=== PATIENT | male | born 1945 | race Caucasian/White ===

== ENCOUNTER 2024-01-17 18:50 | Observation (INO) ==
[2024-01-17 20:09] LABS: Appearance Urine Turbid (Clear); Bilirubin Urine Negative (Negative); Blood Urine 3+ (Negative); Color Urine Red; Glucose Urine UA Negative (Negative); Ketones Urine Trace (Negative); Leukocyte Esterase Urine Trace (Negative); Nitrite Urine Negative (Negative); Protein Urine 3+ (Negative); Urobilinogen Urine Negative (Negative)
[2024-01-17 20:13] LABS: RBC Urine >20 /hpf (0-2)
[2024-01-17 20:14] LABS: Bacteria Urine 1+ (None Seen)
--- NOTE | 2024-01-17 21:31 | Emergency Department Note ---
Impression & Plan Hyponatremia, Urinary retention ED Provider Note CHIEF COMPLAINT: Hematuria, trouble urinating HISTORY OF PRESENTING ILLNESS: This 78-year-old male patient presents to the emergency department for evaluation of trouble urinating. He states that he has been only trickling urine for the past 3-4 days, but was trying to hold off. The patient states that he has not urinated since 1600 today and it is now 2130. The patient has a history of enlarged prostate and frequently requires Anylor catheters to be placed due to urinary retention. He continues to follow-up with urology. He was last seen in the emergency department on 12/01/2023 with similar symptoms and a Naylor catheter was placed. The patient is on Flomax to help with his symptoms. He is not on antibiotics right now. He follows up with Dr. Greene and they are discussing a possible repeat surgery to help with the prostate enlargement. He does not have a follow up with Dr. Greene for another month. The patient states that he did not start to get blood in his urine until after they tried to do the catheter. Did not have any symptoms prior to the catheter, but now has some burning at the end of his penis. REVIEW OF SYSTEMS: See HPI for pertinent positives and pertinent negatives. ALLERGIES: Latex MEDICATIONS: See below PAST MEDICAL HISTORY: See below PHYSICAL EXAM: VITALS: Vitals are noted on the nurse's note and reviewed by myself. GENERAL: Non toxic, no acute distress, non-diaphoretic. SKIN: Capillary refill <2 sec. EYES: PERRLA. EOMI. Conjunctivae without injection, sclerae without icterus. NOSE: Patent without discharge. MOUTH: Mucous membranes moist. Uvula midline. Airway patent. NECK: Supple without nuchal rigidity. HEART: Regular rate and rhythm without murmurs gallops or rubs. LUNGS: Clear to auscultation bilaterally without wheezes, rales or rhonchi. No retractions or accessory muscle use. ABDOMEN: Positive bowel sounds x 4. Normal tympanic percussion. Soft, nontender. No masses or organomegaly. Emery sign negative. No guarding or rebound tenderness. No focal RLQ or LLQ tenderness. : Permission to perform the exam. Radio News Writer present for the exam. Testicles are descended bilaterally and are nontender to palpation with no obvious masses noted. No penile lesion or discharge. NEURO: Patient was alert and oriented. No focal neurological deficits. DIFFERENTIAL DIAGNOSIS: Differential diagnosis includes urinary retention, prostatitis, prostate enlargement, UTI, kidney stone, acute kidney injury, electrolyte abnormality, or others. ED COURSE AND MEDICAL DECISION MAKING: MEDICATIONS GIVEN: Normal saline solution at 125 mL/h up to 500 ml. Rocephin 2 g IV. INTERPRETATION OF LABS: I interpreted the labs with full lab results as below in the lab section of this note. White blood cell count normal at 5.65. Hemoglobin low at 12.6. Platelet count normal at 286. Sodium significantly low at 119. Chloride 88. BMP otherwise normal. Urinalysis with 3+ protein, trace ketones, 3+ blood, trace leukocyte Estrace, greater than 20 red blood cells, 6- 10 white blood cells, 3-5 epithelial cells, and 1+ bacteria. Urine culture is pending. EXTERNAL RECORDS REVIEWED: I reviewed the patient's past urology visit notes and previous admissions for similar complaints. CONSULTATIONS: Mahesh Mccarty PA-C of urology. The on-call hospitalist. MDM SUMMARY: The patient was seen during a time of extreme volume and extreme acuity. Nursing triage protocols were initiated and conducted by protocol in the triage area. The patient was examined by myself once they were taken back to an exam room. Bladder scan by nursing staff revealed 209 mL of urine. Nursing staff attempted multiple times to place a Naylor catheter, but were unsuccessful. The patient did have 50 mL of urine returned with attempt at Naylor catheter placement and there was blood in the urine. Repeat bladder scan showed 250 ml. I spoke with Mahesh Mccarty PA-C of urology who evaluated the patient. He was able to place an 18 [place] Coud Naylor catheter and had 250 mL of output. He irrigated the Naylor catheter with repeat bladder scan showing no residual urine or fluid. Urinalysis was concerning for possible UTI with urine culture pending. Due to the length of the patient's symptoms, an IV lock was placed and labs were drawn. Hemoglobin is low, but stable. Sodium was significantly low at 119 and chloride 88. BMP otherwise normal. The patient will require admission for further management of the hyponatremia. He was given Rocephin 2 g IV to cover for the possible UTI. He was hydrated with normal saline solution at 125 mL/h up to 500 mL. The patient was independently evaluated by Dr. Connelly, who agrees with my assessment and treatment plan. I spoke with the on-call hospitalist who agreed to admit the patient for further evaluation and treatment. Please refer to their dictation for further details. The patient's care was transferred in stable condition. DIAGNOSIS: Hyponatremia Urinary retention Possible UTI Past Med/Surg History Medical History Urinary retention Asthma daily inh, and rescue inh prn Hyperlipidemia BPH (benign prostatic hyperplasia) Anxiety Surgical History Hx of cataract surgery rt and left Family History Other Family history unknown Social History Smoking Status: Never smoker Tobacco Type: Cigarettes and Smokeless Tobacco (Dip or Chew) Second Hand Exposure: No; Do You Dip or Chew Tobacco: No (quit 15 years ago; advised); Hx Alcohol Use: Yes Alcohol type: beer Alcohol Intake Frequency: 4 or More x per/Week Hx Substance Use: No Preferred Language: Telugu Communication Ability: Effective Visual Impairment: Limited Hearing Ability: Use of Hearing Aid Automatic 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 Seatbelt Use: never Sunscreen Use: Yes Assistive Devices: Glasses and Hearing Aid - Bilateral Allergies Allergies Allergy/AdvReac Type Severity Reaction Status Date / Time latex Allergy Intermediate Mouth Verified 01/17/24 23:59 Sores (from dentist gloves) Home Meds Home Medications Medication Instructions Recorded Confirmed buspirone 5 mg tablet 5 mg PO QAM 08/30/23 01/18/24 cholecalciferol (vitamin D3) 125 125 mcg PO QAM 08/30/23 01/18/24 mcg (5,000 unit) capsule cyanocobalamin (vitamin B-12) 1,000 mcg PO QAM 08/30/23 01/18/24 1,000 mcg tablet (Vitamin B-12) finasteride 5 mg tablet 5 mg PO QAM 08/30/23 01/18/24 simvastatin 40 mg tablet 40 mg PO QAM 08/30/23 01/18/24 albuterol sulfate 90 mcg/actuation 1 puff inhalation QID PRN 01/18/24 01/18/24 aerosol inhaler Shortness Of Breath Or Wheezing Previous Rx's Medication Instructions Recorded albuterol sulfate 2.5 mg/0.5 mL 5 mg inhalation Q6H PRN shortness 03/18/23 solution for nebulization of breath or wheezing #30 ea oxybutynin chloride 5 mg tablet 5 mg PO Q8H PRN bladder spasms #12 09/05/23 tabs phenazopyridine 200 mg tablet 200 mg PO Q8H PRN pain #10 tabs 09/05/23 (Pyridium) tamsulosin 0.4 mg capsule (Flomax) 0.4 mg PO DAILY #30 caps 11/29/23 Results & Data (ED) Vital Signs Vital Signs - 24 hr 01/17/24 18:58 Temperature 36.8 C Temperature Source Temporal Artery Scan Pulse Rate 107 H Respiratory Rate 18 Respiratory Effort / Characteristics Non-Labored Spontaneous Respiratory Depth Normal Respiratory Pattern Regular Blood Pressure 103/54 L Blood Pressure Mean 70 Blood Pressure Position Sitting Pulse Oximetry 96 Oxygen Delivery Method Room Air Sepsis Recent Fever Within 48 Hours No Sepsis New/Unexplained Change in Mental Status N/A Sepsis Action Taken by Nursing No Action Required Laboratory Data 01/17/24 23:03 01/17/24 23:03 Lab Results 01/17/24 01/17/24 01/17/24 Range/Units 19:45 23:03 23:04 WBC 5.65 (4.8-10.8) K/ul RBC 3.71 L (4.70-6.10) M/uL Hgb 12.6 L (14.0-18.0) g/dl Hct 35.0 L (42.0-52.0) % MCV 94.3 (80.0-100.0) fL MCH 34.0 (25.0-34.0) pg MCHC 36.0 (32.0-36.0) g/dL RDW Std Deviation 40.3 (36.4-46.3) fL RDW Coeff of Polina 11.6 (11.5-14.5) % Plt Count 286 (130-400) K/uL MPV 8.7 L (9.4-12.4) fL Immature Gran % (Auto) 0.5 % Neut % (Auto) 59.2 % Lymph % (Auto) 22.8 % [place] % (Auto) 15.8 % Eos % (Auto) 1.2 % Baso % (Auto) 0.5 % Neut # (Auto) 3.34 (1.40-6.50) K/uL Lymph # (Auto) 1.29 (1.20-3.40) K/uL [place] # (Auto) 0.89 H (0.11-0.59) K/uL Eos # (Auto) 0.07 (0.00-0.50) K/uL Baso # (Auto) 0.03 (0.00-0.20) K/uL Immature Gran # (Auto) 0.03 (0.01-0.20) K/uL Sodium 119 L* (136-145) mmol/L Potassium 4.3 (3.5-5.1) mmol/L Chloride 88 L (98-107) mmol/L Carbon Dioxide 24 (21-32) mmol/L Anion Gap 7 (3-11) BUN 14 (6-23) mg/dl Creatinine 1.04 (0.6-1.4) mg/dl Est Cr Clr Drug Dosing 57.2 ml/min Est GFR ( Amer) 80.5 ml/min Est GFR (Non-Af Amer) 69.4 ml/min BUN/Creatinine Ratio 13.5 (10-20) Glucose 95 (70-99(Fasting)) mg/dl Osmolality 252 L (280-300) mOsm/kg Calcium 9.3 (8.6-10.3) mg/dl Phosphorus 2.8 (2.5-4.9) mg/dl Magnesium 1.9 (1.7-2.4) mg/dl TSH 2.067 (0.300-4.500) uIu/ml Urine Color Red Urine Appearance Turbid A (Clear) Urine pH 6.0 (4.5-7.5) Ur Specific [place] 1.020 (1.000-1.030) Urine Protein 3+ H (Negative) Urine Glucose (UA) Negative (Negative) Urine Ketones Trace H (Negative) Urine Blood 3+ H (Negative) Urine Nitrite Negative (Negative) Urine Bilirubin Negative (Negative) Urine Urobilinogen Negative (Negative) Ur Leukocyte Esterase Trace H (Negative) Urine RBC >20 H (0-2) /hpf Urine WBC 6-10 H (0-5) /hpf Ur Epithelial Cells 3-5 H (0-2) /hpf Urine Bacteria 1+ H (None Seen) Administered Medications Albuterol (Albuterol Hfa 8 Gm Inhaler) 1 puffs INH QID PRN PRN Reason: Shortness Of Breath Or Wheezin Stop: 02/17/24 01:19 Last Admin: 01/18/24 02:17 Dose: 1 puffs Documented By: DONYA Discontinued Medications Sodium Chloride (Nss) 500 mls @ 125 mls/hr IV .Q4H TIN Stop: 02/16/24 23:44 Last Infusion: 01/18/24 04:36 Dose: Infused Documented By: Admin: 01/18/24 00:22 Dose: 125 mls/hr Documented By: ANDREI Ceftriaxone Sodium (Rocephin) 2,000 mg in 50 mls @ 100 mls/hr IV NOW STA Stop: 01/18/24 00:22 Last Infusion: 01/18/24 03:41 Dose: Infused Documented By: Admin: 01/18/24 00:23 Dose: 100 mls/hr Documented By: ANDREI Lidocaine HCl (Lidocaine 2% Jelly 5 Ml Tube) Confirm Administered Dose 5 ml EXT .STK-MED ONE Stop: 01/17/24 22:22 Last Admin: 01/17/24 22:59 Dose: Not Given Documented By: ANDREI Lidocaine HCl (Lidocaine 2% Jelly 5 Ml Tube) 5 ml EXT NOW ONE Stop: 01/17/24 22:58 Last Admin: 01/17/24 22:59 Dose: 5 ml Documented By: ANDREI Discharge Plan Visit Data Chief Complaint: Hematuria Stated Complaint: TROUBLE URINATING ED Provider: Yancy Connelly ED Midlevel Provider: Iona Boucher Discharge Problem: Hyponatremia, Urinary retention Patient Disposition: Admitted As Inpatient Condition: Good Discharge Instructions Interventions: ED Discharge Assessment Last Done: 01/18/24 01:20
[2024-01-17] MEDS: LIDOCAINE 2% JELLY 5 ML TUBE EXT ONE ×2 (22:59)
[2024-01-17 23:16] LABS: Basophils # (auto) 0.03 K/uL (0.00-0.20); Basophils % (auto) 0.5 %; Eosinophils # (auto) 0.07 K/uL (0.00-0.50); Eosinophils % (auto) 1.2 %; Hemoglobin 12.6 g/dl (14.0-18.0); Immature Granulocytes # (auto) 0.03 K/uL (0.01-0.20); Immature Granulocytes % (auto) 0.5 %; Lymphocytes # (auto) 1.29 K/uL (1.20-3.40); Lymphocytes % (auto) 22.8 %; Mean Corpuscular Volume 94.3 fL (80.0-100.0); Mean Platelet Volume 8.7 fL (9.4-12.4); Monocytes # (auto) 0.89 K/uL (0.11-0.59); Monocytes % (auto) 15.8 %; Neutrophils # (auto) 3.34 K/uL (1.40-6.50); Neutrophils % (auto) 59.2 %; Platelet Count 286 K/uL (130-400); RDW Coefficient of Variation 11.6 % (11.5-14.5); RDW Standard Deviation 40.3 fL (36.4-46.3); Red Blood Count 3.71 M/uL (4.70-6.10); White Blood Count 5.65 K/ul (4.8-10.8)
--- NOTE | 2024-01-17 23:43 | Urology Consultation ---
Date of Consultation January 17, 2024 Assessment & Plan (1) Urinary retention: I evaluated the patient in room D6. As previously noted nursing staff attempted to place Naylor catheter without success. They did BladderScan the patient for approximately 250 cc of urine Procedure: With the patient's permission and under sterile technique I successfully and easily placed an 18 [place] coud catheter. After obtaining the patient's consent I did prep and drape his penis in usual sterile fashion and used a Uro- Jet to anesthetized and lubricate the patient's urethra. I then easily placed a 18 [place] coud catheter. I immediately got a return of some blood-tinged urine. There were no visible clots in the catheter. Naylor catheter balloon was inflated without difficulty. I placed the catheter to gravity drainage and allow the bladder to completely empty. I then measured the amount of urine that was retrieved and was approximately 250 cc, consistent with what was noted on bladder scan. Following this, I flushed and irrigated the patient's Naylor catheter with no visible clots obtained. The catheter flushed and irrigated easily. A bladder scan was then performed which revealed no residual urine. Following the above-noted procedure, labs were drawn to ensure the patient did not have any significant electrolyte abnormalities or evidence of kidney injury. His chemistry profile came back showing he had marked hyponatremia. I did discuss with the treating clinician the emergency department and she noted that she was going to have the patient admitted on the hospitalist service secondary to this abnormality. Please refer to the primary admitting services recommendations regarding further treatment of his hyponatremia. Urology will continue to follow along with additional recommendations regarding the patient's urinary retention. History of Present Illness Reason for Consultation: Urinary retention History of Present Illness This is a 78-year-old male who follows with [facility] urology. He was most recently followed with Dr. Greene. On 09/05/2023 the patient underwent a Rezum procedure by Dr. Greene. The patient notes that following this procedure he had improvement of urinary symptomatology that he was experiencing before this procedure. The patient does note that recently he has been having some increasing difficulty with a weak urine stream. He notes that his urine stream has been much weaker and he actually notes that it is not a straight stream but actually splits when he urinates. He has not noted any hematuria as an outpatient. The patient notes that due to the symptomatology he is considering undergoing further surgical intervention with Dr. Greene. Over the past 3 days the patient notes that he has been having an even greater deal of difficulty urinating as the urine is merely dribbling from his urethra. Again he denies any blood in his urine. He denies any fevers, shakes, or chills. He denies any back or flank pain. The patient notes that throughout the course of the day he has had some suprapubic pressure and feeling as though he cannot empty his bladder prompting a visit to the emergency department. Since arrival to the hospital the patient has had some labs drawn. CBC revealed white blood cell count and platelet count are normal. His hemoglobin and hematocrit are 12.6 and 35.0. A chemistry profile showed his sodium was low at 119. Potassium, BUN, and creatinine were normal.A urinalysis showed turbid urine which was negative for nitrites but had trace leukocyte Estrace. He had 6-10 white blood cells per high-power field and 1+ bacteria. In the emergency department the patient underwent a bladder scan which revealed approximately 250 cc of urine. The patient did have multiple attempts at placing a Naylor catheter by nursing staff which were unsuccessful. Please see the assessment and plan for my procedural intervention regarding this patient. At the time of my interview the patient is resting comfortably in bed he is in no distress. Allergies Allergy/AdvReac Type Severity Reaction Status Date / Time latex Allergy Intermediate Mouth Verified 01/17/24 23:59 Sores (from dentist gloves) Home Medications Medication Instructions Recorded Confirmed Type albuterol sulfate 2.5 mg/0.5 mL 5 mg inhalation Q6H PRN shortness 03/18/23 01/18/24 Rx solution for nebulization of breath or wheezing #30 ea buspirone 5 mg tablet 5 mg PO QAM 08/30/23 01/18/24 History cholecalciferol (vitamin D3) 125 125 mcg PO QAM 08/30/23 01/18/24 History mcg (5,000 unit) capsule cyanocobalamin (vitamin B-12) 1,000 mcg PO QAM 08/30/23 01/18/24 History 1,000 mcg tablet (Vitamin B-12) finasteride 5 mg tablet 5 mg PO QAM 08/30/23 01/18/24 History simvastatin 40 mg tablet 40 mg PO QAM 08/30/23 01/18/24 History oxybutynin chloride 5 mg tablet 5 mg PO Q8H PRN bladder spasms #12 09/05/23 01/18/24 Rx tabs phenazopyridine 200 mg tablet 200 mg PO Q8H PRN pain #10 tabs 09/05/23 01/18/24 Rx (Pyridium) tamsulosin 0.4 mg capsule (Flomax) 0.4 mg PO DAILY #30 caps 11/29/23 01/18/24 Rx albuterol sulfate 90 mcg/actuation 1 puff inhalation QID PRN 01/18/24 01/18/24 History aerosol inhaler Shortness Of Breath Or Wheezing Patient History Medical History (Updated 01/17/24 @ 23:39 by Bradley Mccarty PA-C) Urinary retention Asthma daily inh, and rescue inh prn Hyperlipidemia BPH (benign prostatic hyperplasia) Anxiety Surgical History Hx of cataract surgery rt and left Family History Other Family history unknown Social History Smoking Status: Never smoker Tobacco Type: Cigarettes and Smokeless Tobacco (Dip or Chew) Second Hand Exposure: No; Do You Dip or Chew Tobacco: No (quit 15 years ago; advised); Hx Alcohol Use: Yes Alcohol type: beer Alcohol Intake Frequency: 4 or More x per/Week Hx Substance Use: No Preferred Language: Guinean Communication Ability: Effective Visual Impairment: Limited Hearing Ability: Use of Hearing Aid Yoke Presser Required: No Beliefs That Will Affect Care: None marital status: / Current Living Situation: Alone current occupational status: retired How many Children do You have: 2 Feels Safe at Home: Yes Childhood Exposure to Second-Hand Smoke: Yes Diet: regular caffeine: No during the past year weight has: remained stable Dental Care, Regularly: No Physical Activity Frequency: Daily Physical Activity Frequency Comment: Cuts wood and does yardwork. Seatbelt Use: never Sunscreen Use: Yes Assistive Devices: Glasses and Hearing Aid - Bilateral Review of Systems Constitutional: no fever and no chills Ear, Nose, Mouth, Throat: no hearing loss Respiratory: no cough and no dyspnea Cardiovascular: no chest pain Gastrointestinal: + abdominal pain (Suprapubic discomfort) Genitourinary: + as per Subjective / HPI Musculoskeletal: no back pain Integumentary: no rash Neurologic: no localized weakness Physical Exam Constitutional: WD/WN, vitals as above Eyes: no conjunctival abnormality ENMT: Ears: no hearing impairment Mouth: no oropharynx abnormality Neck: trachea midline Respiratory: no labored breathing Cardiovascular: Rate/Rhythm: regular rate and regular rhythm Gastrointestinal (Abdomen): Abdomen is soft and nondistended. There is nonrigid. There is no rebound tenderness or guarding. The patient did have some suprapubic discomfort with palpation Musculoskeletal: No calf tenderness Skin: no rashes Neurologic: moves all extremities Psychiatric: A+Ox3, euthymic affect Genitourinary: no CVA tenderness Results & Data Vital Signs (Past 12 Hours) Vital Signs Temp Pulse Resp BP Pulse Ox O2 Del Method 01/17/24 18:58 36.8 C 107 H 18 103/54 L 96 Room Air PG Care Time/CCT Total # of Minutes Spent Total Time Spent with Patient: Total time spent is greater than 50% in coordination of care (as documented) at patient's floor/unit and/or counseling patient: Coding Level of Care Code 39013 INT INP/OBS CARE 3/75MIN Diagnoses Urinary retention R33.9
[2024-01-17 23:45] LABS: BUN Creatinine Ratio 13.5 (10-20); Calcium 9.3 mg/dl (8.6-10.3); Creatinine Clr Calc Pharmacy 57.2 ml/min; Est GFR (African American) 80.5 ml/min; Est GFR (Non-African American) 69.4 ml/min; Potassium 4.3 mmol/L (3.5-5.1)
[2024-01-18] MEDS: SODIUM CHLORIDE 0.9% 500 ML IV SCH (00:22)
[2024-01-18] MEDS: cefTRIAXone SODIUM 2,000 MG/50 ML BAG IV STA (00:23)
--- NOTE | 2024-01-18 00:38 | History & Physical Report ---
Date of Service January 18, 2024 Assessment & Plan (1) Hyponatremia: Plan: Patient with acute on chronic hyponatremia. Sodium = 119. Last checked on 08/17/2023 and was low at 124. Asymptomatic. Patient reports drinking 3-4 beers per day, reports a good appetite with adequate oral intake. Admit to medical telemetry Check urine and serum osmolality Check urine sodium Repeat chemistry in the morning (2) Urinary retention: Plan: Status postplacement of Naylor catheter in the ER with return of 250 mL of bloody urine. Hemoglobin acceptable at 12.6. Renal function and electrolytes are in tact Maintain Naylor catheter Urology consultation appreciated Monitor renal function and CBC Was given a dose of ceftriaxone in the ER for possible UTI. Will await urine culture and hold further antibiotics for now. (3) BPH (benign prostatic hyperplasia): Plan: Chronic. Patient follows with urology. Naylor now in place Continue Flomax Continue finasteride Continue oxybutynin as needed for bladder spasms Continue Pyridium as needed for pain (4) Hyperlipidemia: Plan: Chronic. Stable. Continue simvastatin (5) Anxiety: Plan: Chronic. Continue buspirone History of Present Illness Chief Complaint: Urinary retention Primary Care Provider: Stephan Camacho DO Carl Henderson is a pleasant 78-year-old male with history of BPH with urinary retention requiring occasional Naylor placement, patient follows with urology. He reports difficulty passing urine for the last 2 to 3 days. Reports no steady stream, only dribbling. Small amount. Has had some abdominal fullness. Denies abdominal pain, nausea, vomiting. Bladder scan performed in the ER which revealed 250 mL of urine. Difficulty placing Naylor, urology was consulted and coud catheter was successfully placed by urology team. 250 cc of bloody urine returned, no retention noted. Labs drawn to assess for anemia and renal dysfunction. Found to have hyponatremia with sodium = 119 Patient denies headache, dizziness, imbalance, confusion or seizure ER course: Ceftriaxone Allergies Allergy/AdvReac Type Severity Reaction Status Date / Time latex Allergy Intermediate Mouth Verified 01/17/24 23:59 Sores (from dentist gloves) Home Medications Medication Instructions Recorded Confirmed Type albuterol sulfate 2.5 mg/0.5 mL 5 mg inhalation Q6H PRN shortness 06/23/23 04/24/24 Rx solution for nebulization of breath or wheezing #30 ea buspirone 5 mg tablet 5 mg PO QAM 08/30/23 01/18/24 History cholecalciferol (vitamin D3) 125 125 mcg PO QAM 08/30/23 01/18/24 History mcg (5,000 unit) capsule cyanocobalamin (vitamin B-12) 1,000 mcg PO QAM 08/30/23 01/18/24 History 1,000 mcg tablet (Vitamin B-12) finasteride 5 mg tablet 5 mg PO QAM 08/30/23 01/18/24 History simvastatin 40 mg tablet 40 mg PO QAM 08/30/23 01/18/24 History oxybutynin chloride 5 mg tablet 5 mg PO Q8H PRN bladder spasms #12 09/05/23 01/18/24 Rx tabs phenazopyridine 200 mg tablet 200 mg PO Q8H PRN pain #10 tabs 09/05/23 01/18/24 Rx (Pyridium) tamsulosin 0.4 mg capsule (Flomax) 0.4 mg PO DAILY #30 caps 11/29/23 01/18/24 Rx albuterol sulfate 90 mcg/actuation 1 puff inhalation QID PRN 01/18/24 01/18/24 History aerosol inhaler Shortness Of Breath Or Wheezing Past Med/Surg History Medical History Urinary retention Asthma daily inh, and rescue inh prn Hyperlipidemia BPH (benign prostatic hyperplasia) Anxiety Surgical History Hx of cataract surgery rt and left Family History Other Family history unknown Social History Smoking Status: Never smoker Tobacco Type: Cigarettes and Smokeless Tobacco (Dip or Chew) Second Hand Exposure: No; Do You Dip or Chew Tobacco: No (quit 15 years ago; advised); Hx Alcohol Use: Yes Alcohol type: beer Alcohol Intake Frequency: 4 or More x per/Week Hx Substance Use: No Preferred Language: Moroccan Communication Ability: Effective Visual Impairment: Limited Hearing Ability: Use of Hearing Aid Y[place] Winder Required: No Beliefs That Will Affect Care: None marital status: / Current Living Situation: Alone current occupational status: retired How many Children do You have: 2 Feels Safe at Home: Yes Childhood Exposure to Second-Hand Smoke: Yes Diet: regular caffeine: No during the past year weight has: remained stable Dental Care, Regularly: No Physical Activity Frequency: Daily Physical Activity Frequency Comment: Cuts wood and does yardwork. Seatbelt Use: never Sunscreen Use: Yes Assistive Devices: Glasses and Hearing Aid - Bilateral Review of Systems Review of Systems: All systems reviewed & are unremarkable except as noted in HPI & below Physical Exam Physical Exam: General: patient resting comfortably, NAD, non-toxic in appearance, AA&O x 4, anxious Skin: warm, dry, intact, no rashes or lesions HEENT: NC/AT, PERRL, EOMI, anicteric sclera, conjunctiva without injection, external ear normal to inspection and nontender, nares patent, moist mucus membranes, dentition intact, no oropharyngeal lesions, neck supple, trachea midline, no LAD, no thyromegaly, no JVD Heart: +S1/S2, regular, no m/r/g Lungs: equal air entry bilaterally, no rales/rhonchi/wheezes Abd: +BS, soft, NT/ND, no masses/organomegaly/ascites Naylor catheter in place with bloody urine in bag Ext: warm, 2+ pulses in UE/LE bilaterally, no clubbing/cyanosis or edema Neuro: nonfocal, patient AA&O x 4, speech intact, no facial droop, moving all extremities on command with equal strength 5/5 Results & Data Results & Data Vital Signs (Past 12 Hours) Vital Signs Temp Pulse Resp BP Pulse Ox O2 Del Method 01/17/24 18:58 36.8 C 107 H 18 103/54 L 96 Room Air Laboratory Results Laboratory Results WBC 5.65 K/ul (4.8-10.8) 01/17/24 23:03 RBC 3.71 M/uL (4.70-6.10) L 01/17/24 23:03 Hgb 12.6 g/dl (14.0-18.0) L 01/17/24 23:03 Hct 35.0 % (42.0-52.0) L 01/17/24 23:03 MCV 94.3 fL (80.0-100.0) 01/17/24 23:03 MCH 34.0 pg (25.0-34.0) 01/17/24 23:03 MCHC 36.0 g/dL (32.0-36.0) 01/17/24 23:03 RDW Std Deviation 40.3 fL (36.4-46.3) 01/17/24 23:03 RDW Coeff of Polina 11.6 % (11.5-14.5) 01/17/24 23:03 Plt Count 286 K/uL (130-400) 01/17/24 23:03 MPV 8.7 fL (9.4-12.4) L 01/17/24 23:03 Immature Gran % (Auto) 0.5 % 01/17/24 23:03 Neut % (Auto) 59.2 % 01/17/24 23:03 Lymph % (Auto) 22.8 % 01/17/24 23:03 [place] % (Auto) 15.8 % 01/17/24 23:03 Eos % (Auto) 1.2 % 01/17/24 23:03 Baso % (Auto) 0.5 % 01/17/24 23:03 Neut # (Auto) 3.34 K/uL (1.40-6.50) 01/17/24 23:03 Lymph # (Auto) 1.29 K/uL (1.20-3.40) 01/17/24 23:03 [place] # (Auto) 0.89 K/uL (0.11-0.59) H 01/17/24 23:03 Eos # (Auto) 0.07 K/uL (0.00-0.50) 01/17/24 23:03 Baso # (Auto) 0.03 K/uL (0.00-0.20) 01/17/24 23:03 Immature Gran # (Auto) 0.03 K/uL (0.01-0.20) 01/17/24 23:03 Sodium 119 mmol/L (136-145) L* 01/17/24 23:03 Potassium 4.3 mmol/L (3.5-5.1) 01/17/24 23:03 Chloride 88 mmol/L (98-107) L 01/17/24 23:03 Carbon Dioxide 24 mmol/L (21-32) 01/17/24 23:03 Anion Gap 7 (3-11) 01/17/24 23:03 BUN 14 mg/dl (6-23) 01/17/24 23:03 Creatinine 1.04 mg/dl (0.6-1.4) 01/17/24 23:03 Est Cr Clr Drug Dosing 57.2 ml/min 01/17/24 23:03 Est GFR ( Amer) 80.5 ml/min 01/17/24 23:03 Est GFR (Non-Af Amer) 69.4 ml/min 01/17/24 23:03 BUN/Creatinine Ratio 13.5 (10-20) 01/17/24 23:03 Glucose 95 mg/dl (70-99(Fasting)) 01/17/24 23:03 Osmolality 252 mOsm/kg (280-300) L 01/17/24 23:04 Calcium 9.3 mg/dl (8.6-10.3) 01/17/24 23:03 Phosphorus 2.8 mg/dl (2.5-4.9) 01/17/24 23:03 Magnesium 1.9 mg/dl (1.7-2.4) 01/17/24 23:03 TSH 2.067 uIu/ml (0.300-4.500) 01/17/24 23:03 Urine Color Red 01/17/24 19:45 Urine Appearance Turbid (Clear) A 01/17/24 19:45 Urine pH 6.0 (4.5-7.5) 01/17/24 19:45 Ur Specific [place] 1.020 (1.000-1.030) 01/17/24 19:45 Urine Protein 3+ (Negative) H 01/17/24 19:45 Urine Glucose (UA) Negative (Negative) 01/17/24 19:45 Urine Ketones Trace (Negative) H 01/17/24 19:45 Urine Blood 3+ (Negative) H 01/17/24 19:45 Urine Nitrite Negative (Negative) 01/17/24 19:45 Urine Bilirubin Negative (Negative) 01/17/24 19:45 Urine Urobilinogen Negative (Negative) 01/17/24 19:45 Ur Leukocyte Esterase Trace (Negative) H 01/17/24 19:45 Urine RBC >20 /hpf (0-2) H 01/17/24 19:45 Urine WBC 6-10 /hpf (0-5) H 01/17/24 19:45 Ur Epithelial Cells 3-5 /hpf (0-2) H 01/17/24 19:45 Urine Bacteria 1+ (None Seen) H 01/17/24 19:45 PG Care Time/CCT Total # of Minutes Spent Total Time Spent with Patient: Total time spent is greater than 50% in coordination of care (as documented) at patient's floor/unit and/or counseling patient: Coding Level of Care Code 26162 INT INP/OBS CARE 375MIN Diagnoses Hyponatremia E87.1 Urinary retention R33.9 BPH (benign prostatic hyperplasia) N40.1; R33.8 Lower urinary tract symptom detail: urinary retention Lower urinary tract symptom presence: symptoms present Hyperlipidemia E78.5 Anxiety F41.9 (3) BPH (benign prostatic hyperplasia) Lower urinary tract symptom detail: urinary retention Lower urinary tract symptom presence: symptoms present Qualified Code(s): N40.1 - Benign prostatic hyperplasia with lower urinary tract symptoms; R33.8 - Other retention of urine
[2024-01-18] MEDS ORDERED: oxyBUTYnin chloride 5 MG TAB PO PRN (01:20)
[2024-01-18] MEDS ORDERED: PHENAZOPYRIDINE HCL 200 MG TAB PO PRN (01:20)
[2024-01-18] MEDS ORDERED: ACETAMINOPHEN 325 MG TAB PO PRN (01:20)
[2024-01-18 02:05] LABS: Magnesium 1.9 mg/dl (1.7-2.4); Phosphorus 2.8 mg/dl (2.5-4.9); Thyroid Stimulating Hormone 2.067 uIu/ml (0.300-4.500)
[2024-01-18] MEDS: ALBUTEROL HFA 8 GM INHALER INH PRN (02:17)
--- NOTE | 2024-01-18 02:19 | Emergency Department Note ---
ED Visit Note I have personally seen and evaluated the patient with Iona Boucher PA-C. I agree with the diagnosis and management decisions and have been personally involved in the case. .
[2024-01-18] MEDS ORDERED: LORazepam 1 MG in SYRINGE 0.5 ML IV PRN (02:39)
[2024-01-18] MEDS: SIMVASTATIN 40 MG TAB PO SCH (08:27)
[2024-01-18] MEDS: busPIRone 5 MG TAB PO SCH (08:27)
[2024-01-18] MEDS: TAMSULOSIN HCL 0.4 MG CAP PO SCH (08:27)
[2024-01-18] MEDS: FINASTERIDE 5 MG TAB PO SCH (08:27)
[2024-01-18 09:31] LABS: BUN Creatinine Ratio 13.6 (10-20); Calcium 9.4 mg/dl (8.6-10.3); Creatinine Clr Calc Pharmacy 67.6 ml/min; Est GFR (African American) 96.7 ml/min; Est GFR (Non-African American) 83.4 ml/min; Potassium 4.3 mmol/L (3.5-5.1)
--- NOTE | 2024-01-18 10:35 | Urology Progress Note ---
Date of Service January 18, 2024 Assessment & Plan (1) Urinary retention: Plan: 78 yo/M with history of BPH with obstruction s/p GRISEL presented with difficulty voiding and Naylor catheter was placed by urology, admitted for hyponatremia. Follow-up of urinary retention Pt afebrile and hemodynamically stable Labs today - creatinine 0.88, Na 125 Urine culture with prelim gram negative bacilli Recommend continue with broad spectrum antibiotics and narrow per sensitivity data when available Naylor patent and draining appropriately Okay to gently hand irrigate catheter if indicated Recommend maintain catheter 7-10 days Will arrange outpatient voiding trial and f/u with our service Continue medical management per hospital medicine service will sign off Admission and Anticipated Discharge Date Admission Date: January 18, 2024 Subjective Patient seen in the emergency department Naylor patent and draining clear light pink tinged urine Reports sensation of urinary urgency at times Denies pain No nausea, vomiting, fever or chills Review of Systems Constitutional: as per Subjective / HPI Genitourinary: + as per Subjective / HPI Physical Exam Constitutional: well developed and well nourished; no acute distress Respiratory: normal respiratory effort; no respiratory distress and no labored breathing Gastrointestinal (Abdomen): Inspection/Auscultation: abdomen normal to inspection Musculoskeletal: Head/Neck/Chest: normocephalic Neurologic: moves all extremities and awake Psychiatric: Orientation: alert and oriented x 3 Genitourinary: Naylor patent and draining clear light pink tinged urine Results & Data Vital Signs (Past 12 Hours) Vital Signs Temp Pulse Pulse Resp BP BP Pulse Ox 01/18/24 08:28 36.6 C 75 20 158/94 H 96 01/18/24 08:04 54 L 01/18/24 04:37 36.8 C 63 20 156/80 H 98 01/18/24 04:33 36.8 C 73 17 156/80 H 97 01/18/24 01:31 36.8 C 80 17 142/105 H 97 01/18/24 01:01 85 15 130/81 96 01/18/24 00:41 86 16 96 01/18/24 00:40 85 O2 Del Method 01/18/24 08:28 Room Air 01/18/24 08:04 01/18/24 04:37 Room Air 01/18/24 04:33 Room Air 01/18/24 01:31 Room Air 01/18/24 01:01 Room Air 01/18/24 00:41 Room Air 01/18/24 00:40 PG Care Time/CCT Total # of Minutes Spent Total Time Spent with Patient: Total time spent is greater than 50% in coordination of care (as documented) at patient's floor/unit and/or counseling patient: Coding Level of Care Code 27420 SUB INP/OBS CARE 1/25MIN Diagnoses Urinary retention R33.9
--- NOTE | 2024-01-18 14:21 | Hospitalist Progress Note ---
Date of Service January 18, 2024 Assessment & Plan (1) Hyponatremia: Plan: Patient presents to the hospital and found to be hyponatremic, admits to daily beer drinking up to pot 3-4 beers a day Wound likely due to beer potomania and hypovolemia Some improvement following IV fluid resuscitation On admission sodium was 119, currently 125 Target not more than 10 mmol increase per day Daily BMP (2) Urinary retention: Plan: Now resolved following insertion of Naylor catheter Urology to maintain Naylor catheter for 7 to 10 days Outpatient follow-up for voiding trial. (3) UTI (urinary tract infection): Plan: Urine cultures growing gram-negative's Continue empiric IV ceftriaxone Await for full characterization and sensitivities. (4) BPH (benign prostatic hyperplasia): Plan: Chronic. Patient follows with urology. Naylor now in place Continue Flomax Continue finasteride Continue oxybutynin as needed for bladder spasms Continue Pyridium as needed for pain (5) Hyperlipidemia: Plan: Chronic. Stable. Continue simvastatin (6) Anxiety: Plan: Chronic. Continue buspirone Plan Continue to monitor in the hospital, hopefully discharge in the next 48 hours Admission and Anticipated Discharge Date Admission Date: January 18, 2024 Results & Data Results & Data Vital Signs (Past 12 Hours) Vital Signs Temp Pulse Pulse Resp BP BP Pulse Ox 01/18/24 12:51 77 18 96 01/18/24 12:51 142/88 H 01/18/24 12:30 64 13 01/18/24 12:00 69 12 01/18/24 08:28 97.9 F 75 20 158/94 H 96 01/18/24 08:04 54 L 01/18/24 04:37 98.2 F 63 20 156/80 H 98 01/18/24 04:33 98.2 F 73 17 156/80 H 97 O2 Del Method 01/18/24 12:51 Room Air 01/18/24 12:51 01/18/24 12:30 01/18/24 12:00 01/18/24 08:28 Room Air 01/18/24 08:04 01/18/24 04:37 Room Air 01/18/24 04:33 Room Air PG Care Time/CCT Total # of Minutes Spent Total Time Spent with Patient: Total time spent is greater than 50% in coordination of care (as documented) at patient's floor/unit and/or counseling patient: Coding Level of Care Code 13211 SUB INP/OBS CARE 235MIN Diagnoses Hyponatremia E87.1 Urinary retention R33.9 UTI (urinary tract infection) N39.0 BPH (benign prostatic hyperplasia) N40.1; R33.8 Lower urinary tract symptom detail: urinary retention Lower urinary tract symptom presence: symptoms present Hyperlipidemia E78.5 Anxiety F41.9 Time Spent (min) 35 (4) BPH (benign prostatic hyperplasia) Lower urinary tract symptom detail: urinary retention Lower urinary tract symptom presence: symptoms present Qualified Code(s): N40.1 - Benign prostatic hyperplasia with lower urinary tract symptoms; R33.8 - Other retention of urine
[2024-01-18] MEDS: cefTRIAXone SODIUM 2,000 MG in DEXTROSE 5 % MINI-B 50 ML IV SCH (23:07)
[2024-01-19 06:57] LABS: Hematocrit (blood only) 34.9 % (42.0-52.0); Hemoglobin 12.5 g/dl (14.0-18.0); Mean Corpuscular Hemoglobin 34.2 pg (25.0-34.0); Mean Corpuscular Hgb Conc 35.8 g/dL (32.0-36.0); Mean Corpuscular Volume 95.6 fL (80.0-100.0); Mean Platelet Volume 9.2 fL (9.4-12.4); Platelet Count 286 K/uL (130-400); RDW Coefficient of Variation 11.6 % (11.5-14.5); RDW Standard Deviation 41.3 fL (36.4-46.3); Red Blood Count 3.65 M/uL (4.70-6.10); White Blood Count 5.41 K/ul (4.8-10.8)
[2024-01-19 07:21] LABS: Albumin Level 3.8 gm/dl (3.4-5.0); BUN Creatinine Ratio 14.9 (10-20); Bilirubin Direct 0.1 mg/dl (0-0.2); Bilirubin,Total 0.5 mg/dl (0.2-1.0); Calcium 9.5 mg/dl (8.6-10.3); Est GFR (African American) 83.4 ml/min; Est GFR (Non-African American) 71.9 ml/min; Total Protein 6.9 gm/dl (6.0-8.3)
--- NOTE | 2024-01-19 10:50 | Hospitalist Progress Note ---
Date of Service January 19, 2024 Assessment & Plan (1) Hyponatremia: Plan: Patient presents to the hospital and found to be hyponatremic, admits to daily beer drinking up to pot 3-4 beers a day Most likely due to beer potomania and hypovolemia Some improvement following IV fluid resuscitation, sodium today 127 Repeat BMP at noon, if around 130 can discharge home (2) Urinary retention: Plan: Now resolved following insertion of Naylor catheter Urology to maintain Naylor catheter for 7 to 10 days Outpatient follow-up for voiding trial. (3) UTI (urinary tract infection): Plan: Urine cultures growing E coli Resistant to quinolones but sensitive to amoxicillin and ampicillin. Continue IV ceftriaxone while in the hospital Discharged on p.o. Augmentin (4) BPH (benign prostatic hyperplasia): Plan: Chronic. Patient follows with urology. Naylor now in place Continue Flomax Continue finasteride Continue oxybutynin as needed for bladder spasms Continue Pyridium as needed for pain (5) Hyperlipidemia: Plan: Chronic. Stable. Continue simvastatin (6) Anxiety: Plan: Chronic. Continue buspirone Plan Continue to monitor in the hospital, hopefully discharge in the next 48 hours Admission and Anticipated Discharge Date Admission Date: January 18, 2024 Subjective Patient seen and examined today see his willing to be discharged. Review of Systems Review of Systems: All systems reviewed are negative, apart from the ones contained in the history. Physical Exam Physical Exam: The patient is awake, alert and oriented 3, well developed and well nourished, normocephalic and atraumatic, lying in bed and in no acute distress. HEENT--PERRL, EOMI, mucous membranes and oropharynx mildly dry Neck--supple. No JVD. No bruits. Thyroid normal, trachea midline, no adenopathy. Heart--normal S1 and S2. No murmurs, rubs or gallops. Lungs--clear bilaterally, no respiratory distress, no accessory muscle use. Abdomen--normal bowel sounds and soft. Extremities--no cyanosis or clubbing. No edema. Dermatologic--normal skin turgor, normal color, no abnormal lymph nodes, no rash. Neurologic--cranial nerves II through XII grossly intact. Rheumatologic--normal range of motion. Psychiatric--normal affect. Results & Data Results & Data Vital Signs (Past 12 Hours) Vital Signs Temp Pulse Pulse Resp BP BP Pulse Ox 01/19/24 10:07 55 L 01/19/24 07:50 97.3 F L 69 16 158/93 H 97 01/19/24 02:51 98.1 F 73 18 130/80 95 01/18/24 23:39 99.0 F 69 18 150/79 H 96 O2 Del Method 01/19/24 10:07 01/19/24 07:50 Room Air 01/19/24 02:51 Room Air 01/18/24 23:39 Room Air PG Care Time/CCT Total # of Minutes Spent Total Time Spent with Patient: Total time spent is greater than 50% in coordination of care (as documented) at patient's floor/unit and/or counseling patient: Coding Level of Care Code 78043 SUB INP/OBS CARE 2/35MIN Diagnoses Hyponatremia E87.1 Urinary retention R33.9 UTI (urinary tract infection) N39.0 BPH (benign prostatic hyperplasia) N40.1; R33.8 Lower urinary tract symptom detail: urinary retention Lower urinary tract symptom presence: symptoms present Hyperlipidemia E78.5 Anxiety F41.9 Time Spent (min) 35 (4) BPH (benign prostatic hyperplasia) Lower urinary tract symptom detail: urinary retention Lower urinary tract symptom presence: symptoms present Qualified Code(s): N40.1 - Benign prostatic hyperplasia with lower urinary tract symptoms; R33.8 - Other retention of urine
--- NOTE | 2024-01-19 14:15 | Discharge Summary ---
Date of Service January 19, 2024 Admission HPI Per Admitting Provider Carl Henderson is a pleasant 78-year-old male with history of BPH with urinary retention requiring occasional Palm placement, patient follows with urology. He reports difficulty passing urine for the last 2 to 3 days. Reports no steady stream, only dribbling. Small amount. Has had some abdominal fullness. Denies abdominal pain, nausea, vomiting. Bladder scan performed in the ER which revealed 250 mL of urine. Difficulty placing Palm, urology was consulted and coud catheter was successfully placed by urology team. 250 cc of bloody urine returned, no retention noted. Labs drawn to assess for anemia and renal dysfunction. Found to have hyponatremia with sodium = 119 Patient denies headache, dizziness, imbalance, confusion or seizure ER course: Ceftriaxone Principal Diagnosis hyponatremia Discharge Exam The patient is awake, alert and oriented 3, well developed and well nourished, normocephalic and atraumatic, lying in bed and in no acute distress. HEENT--PERRL, EOMI, mucous membranes and oropharynx mildly dry Neck--supple. No JVD. No bruits. Thyroid normal, trachea midline, no adenopathy. Heart--normal S1 and S2. No murmurs, rubs or gallops. Lungs--clear bilaterally, no respiratory distress, no accessory muscle use. Abdomen--normal bowel sounds and soft. Extremities--no cyanosis or clubbing. No edema. Dermatologic--normal skin turgor, normal color, no abnormal lymph nodes, no rash. Neurologic--cranial nerves II through XII grossly intact. Rheumatologic--normal range of motion. Psychiatric--normal affect. Discharge Data Allergies Allergy/AdvReac Type Severity Reaction Status Date / Time latex Allergy Intermediate Mouth Verified 01/17/24 23:59 Sores (from dentist gloves) Consultations 01/17/24 23:55 Consult Urology Stat 01/18/24 00:19 ED Decision to Admit Stat Hospital Course (1) Hyponatremia: Patient presents to the hospital and found to be hyponatremic, admits to daily beer drinking up to pot 3-4 beers a day Most likely due to beer potomania and hypovolemia Some improvement following IV fluid resuscitation, sodium today 127 Patient wanted to be discharged home Will discharge on oral salt tablets 1g TID for 5 days Asked to follow up with PCP and Urology (2) Urinary retention: Now resolved following insertion of Palm catheter Urology to maintain Palm catheter for 7 to 10 days Outpatient follow-up for voiding trial. (3) UTI (urinary tract infection): Urine cultures growing E coli Resistant to quinolones but sensitive to amoxicillin and ampicillin. Continue IV ceftriaxone while in the hospital Discharged on p.o. Augmentin for 5 more days (4) BPH (benign prostatic hyperplasia): Chronic. Patient follows with urology. Palm now in place Continue Flomax Continue finasteride Continue oxybutynin as needed for bladder spasms Continue Pyridium as needed for pain (5) Hyperlipidemia: Chronic. Stable. Continue simvastatin (6) Anxiety: Chronic. Continue buspirone Plan d/c home Total Time Total Time Spent Total Time Spent (In Minutes): 35 Discharge Plan Discharge Items Patient Disposition: Home - Self-Care Reason For Visit: HYPONATREMIA, URINARY RETENTION Discharge Diagnosis: hyponatremia, urinary retension Condition on Discharge: Good Activity: Resume your previous activity Non-emergency contact: Primary Care Provider and Urologist Call non-emergency contact if: you have any medication questions Follow-up/Referrals: Stephan Camacho DO [Primary Care Provider] - [facility],Nurse [FAKE FOR SCHEDULES] - 01/26/24 10:00 am Diet: Regular Addtl Attending Provider Instructions: please keep the palm catheter on until you see Urology on 01/26/24 Pending Studies at Discharge: No Stand-Alone Forms: [employer], Smoking Cessation Medications and DC Order Prescriptions: New sodium chloride 1,000 mg Tablet,Soluble 1,000 mg PO TID 5 Days Qty: 15 0RF amoxicillin-pot clavulanate [Augmentin XR] 1,000-62.5 mg tablet extended release 12 hr 1 tab PO BID 5 Days Qty: 10 0RF Continued albuterol sulfate 2.5 mg/0.5 mL solution for nebulization 5 mg inhalation Q6H PRN (Reason: shortness of breath or wheezing) Qty: 30 11RF tamsulosin [Flomax] 0.4 mg capsule 0.4 mg PO DAILY Qty: 30 5RF cyanocobalamin (vitamin B-12) [Vitamin B-12] 1,000 mcg Tablet 1,000 mcg PO QAM buspirone 5 mg tablet 5 mg PO QAM simvastatin 40 mg tablet 40 mg PO QAM cholecalciferol (vitamin D3) 125 mcg (5,000 unit) capsule 125 mcg PO QAM finasteride 5 mg tablet 5 mg PO QAM phenazopyridine [Pyridium] 200 mg tablet 200 mg PO Q8H PRN (Reason: pain) Qty: 10 0RF oxybutynin chloride 5 mg tablet 5 mg PO Q8H PRN (Reason: bladder spasms) Qty: 12 0RF albuterol sulfate 90 mcg/actuation HFA aerosol inhaler 1 puff inhalation QID PRN (Reason: Shortness Of Breath Or Wheezing) Discharge Orders: Discharge Order (Routine); Ordered 01/19/24 Ordered By: Margaret Quigley Admission Data Admit Date/Time: 01/18/24 00:37 Attending Provider: Margaret Quigley Admit Provider: Qian Horton Primary Care Provider: Stephan Camacho Other Providers: José Greene; Qian Horton Coding Level of Care Code 33045 INP/OBS DISCH >30 MIN Diagnoses Hyponatremia E87.1 Urinary retention R33.9 UTI (urinary tract infection) N39.0 BPH (benign prostatic hyperplasia) N40.1; R33.8 Lower urinary tract symptom detail: urinary retention Lower urinary tract symptom presence: symptoms present Hyperlipidemia E78.5 Anxiety F41.9
[2024-01-19] MEDS ORDERED: SODIUM CHLORIDE 1 GM TABLET PO SCH (21:00)
== END 2024-01-19 15:07 | disposition home or self-care (01) ==
LOC: EDINP 18:50 → ED 18:50 → SUATTDRO 01-18 00:37 → 2N 01-18 01:20